=== PATIENT | female | born 1995 | race Caucasian/White ===

== ENCOUNTER 2017-09-23 17:28 | Emergency (ER) | payer MEDICAID, OTHER ==
[~2017-09-23 17:28] MED LIST: IBUP800 PO; NEXP68IM; ULTR50TA PO
--- NOTE | 2017-09-23 18:17 | PD ---
HPI Chief Complaint Pelvic pressure Date Seen: Sep 23, 2017 Time Seen: 18:13 Travel History International Travel<30 Days: No Contact w/Intl Traveler<30Days: No Known Affected Area: No History of Present Illness HPI 22-year-old who is at 18 weeks and 6 days comes in complaining of pelvic pressure since 3 PM today. Patient also has a little bit of cramping but denies vaginal bleeding and thinks she started to feel some movement. She has initiated care with [facility] and they have discussed starting her on Erica due to her history of . Denies dysuria frequency or urgency. Weeks Gestation: 18 Para: 1 : 2 History Past Medical History Medical History: Denies Significant Hx Obstetric History Obstetric History Spontaneous vaginal delivery-3 months early Family History Family History: Negative Social History Alcohol Use: No Tobacco Use: No Substance Abuse: No Allergies-Medications (Allergen,Severity, Reaction): Coded Allergies: codeine (Verified Allergy, Unknown, 06/28/17) Home Meds No Active Prescriptions or Reported Meds Review of Systems Except as stated in HPI: all other systems reviewed are Neg Physical Exam Narrative GENERAL: Well-nourished, well-developed patient. SKIN: Warm and dry. HEAD: Normocephalic and atraumatic. EYES: No scleral icterus. No injection or drainage. ENT: No nasal drainage noted. Mucous membranes pink. Airway patent. NECK: Supple, trachea midline. No JVD. CARDIOVASCULAR: Regular rate and rhythm without murmurs, gallops, or rubs. RESPIRATORY: Breath sounds equal bilaterally. No accessory muscle use. BREASTS: Bilateral exam showed no masses , no retractions, no nipple discharge. ABDOMEN/GI: Abdomen soft, non-tender, bowel sounds present, no rebound, no guarding Gravid to [-] weeks size 18 weeks size Fundal Height: [-] GENITOURINARY: External Genitalia: intact and normal in appearance BUS glands: [-] Normal Cervix: [-] Some benign discharge is noted intravaginally the cervix is closed both visually and on examination Dilatation: [-] Effacement: [-] Station: [-] Presentation: [-] Membranes: [intact or ruptured] Uterine Contractions: [-] FHT's: Doppler 142 Category: [-] Baseline: [-] Reactive: [-] Variability: [-] Decels: [-] EXTREMITIES: No cyanosis or edema. BACK: Nontender without obvious deformity. No CVA tenderness. NEUROLOGICAL: Awake and alert. Motor and sensory grossly within normal limits. Five out of 5 muscle strength in all muscle groups. Normal speech. Data Data Vital Signs Reviewed: Yes MDM Medical Record Reviewed: Yes Plan 22-year-old who is at 18 weeks 6 days with pelvic pressure no signs of this point of cervical insufficiency Patient is awaiting insurance approval to initiate Erica Follow-up with OB provider as scheduled Diagnosis Diagnosis: Primary Impression: 18 weeks gestation of Additional Impressions: History of delivery, currently in second trimester Feeling pelvic pressure during in second trimester, antepartum Disposition: DISCHARGE HOME Scripts No Active Prescriptions or Reported Meds Eva Apple MD Sep 23, 2017 18:17
== END 2017-09-23 18:25 | disposition home or self-care (01) ==
LOC: HOBED 17:28 → MERGE 17:28 → HOBED 18:25
DX: O26.892 Other specified pregnancy related conditions, second trimester (principal); R10.2 Pelvic and perineal pain; Z3A.18 18 weeks gestation of pregnancy; Z88.5 Allergy status to narcotic agent
CPT/HCPCS: 99283

== ENCOUNTER 2017-11-16 21:37 | Emergency (ER) | payer MEDICAID ==
[2017-11-16 23:02] LABS: AMORPHOUS SEDIMENT, URINE RARE; BACTERIA, URINE MANY /hpf; BILIRUBIN, URINE NEG (NEG); BLOOD, URINE NEG (NEG); GLUCOSE,URINE NEG (NEG); KETONE, URINE NEG (NEG); MUCUS URINE FEW /lpf (OCC); NITRITE,URINE NEG (NEG); PH, URINE 6.5 (5.0-8.5); SQUAMOUS EPITHELIAL CELL URINE 9 /hpf (0-5); URINE COLOR YELLOW (YELLW/STRAW); URINE LEUKOCYTE ESTERASE LARGE (NEG)
--- NOTE | 2017-11-16 23:22 | PD ---
HPI Chief Complaint abdominal pain Date Seen: Nov 16, 2017 Time Seen: 23:15 Travel History International Travel<30 Days: No Contact w/Intl Traveler<30Days: No Known Affected Area: No History of Present Illness HPI pt. is a 22 y/o @ 26 3/7 weeks w/ c/o abdominal pain. pt. hanna pain began earlier in day, states consistent w/ ctxs. states were ~ 8mins apart, but stopped and have been on and off since. +FM, no lof/vb. has h/o delivery at 25 weeks. Weeks Gestation: 26 Para: 0 : 2 History Past Medical History Medical History: Denies Significant Hx Obstetric History Obstetric History , h/o ptl&d at 25 weeks. Past Surgical History Surgical History: No Previous Surgery Family History Family History: Negative Social History Alcohol Use: No Tobacco Use: No Substance Abuse: No Allergies-Medications (Allergen,Severity, Reaction): Coded Allergies: codeine (Unverified Allergy, Intermediate, Rash, 04/07/17) Home Meds Active Scripts Ibuprofen (Motrin 800 Mg Tab) 800 Mg Tab, 800 MG PO Q8H Y for PAIN, #20 TAB Prov:Layla Elkins MD 07/13/14 Reported Medications Etonogestrel (Nexplanon) 68 Mg Imp 07/13/14 Tramadol HCl (Ultram) 50 Mg Tab, 50 MG PO Q4H Y for PAIN, TAB 07/13/14 Review of Systems Except as stated in HPI: all other systems reviewed are Neg Physical Exam Narrative GENERAL: Well-nourished, well-developed patient. SKIN: Warm and dry. HEAD: Normocephalic and atraumatic. EYES: No scleral icterus. No injection or drainage. ENT: No nasal drainage noted. Mucous membranes pink. Airway patent. NECK: Supple, trachea midline. No JVD. CARDIOVASCULAR: Regular rate and rhythm without murmurs, gallops, or rubs. RESPIRATORY: Breath sounds equal bilaterally. No accessory muscle use. BREASTS: Bilateral exam showed no masses , no retractions, no nipple discharge. ABDOMEN/GI: Abdomen soft, non-tender, bowel sounds present, no rebound, no guarding Gravid GENITOURINARY: External Genitalia: intact and normal in appearance Dilatation:1 Effacement: long Station: high Presentation:cephalic Uterine Contractions: none FHT's: Category: 1 Reactive: + Variability: mod EXTREMITIES: No cyanosis or edema. BACK: Nontender without obvious deformity. No CVA tenderness. NEUROLOGICAL: Awake and alert. Motor and sensory grossly within normal limits. Five out of 5 muscle strength in all muscle groups. Normal speech. 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[employer] Producer Clear For Discharge (11/16/17 ) Labs Laboratory Tests Test 11/16/17 22:05 Urine Color YELLOW Urine Turbidity HAZY Urine pH 6.5 Urine Specific Carr 1.025 Urine Protein TRACE Urine Glucose (UA) NEG Urine Ketones NEG Urine Occult Blood NEG Urine Nitrite NEG Urine Bilirubin NEG Urine Urobilinogen LESS THAN 2.0 Urine Leukocyte Esterase LARGE Urine RBC 5 Urine WBC 8 Urine Squamous Epithelial Cells 9 Urine Amorphous Sediment RARE Urine Bacteria MANY Urine Mucus FEW Microscopic Urinalysis Comment CULTURE INDICATED Date/Time Source Procedure Growth Status 11/16/17 22:05 Urine Clean Catch Urine Culture Pending Received MDM Medical Record Reviewed: Yes Plan pt. to be d/c to home. pt. w/ uti on ua. condtion d/w pt. pt. to have macrobid 100mg bid. pt. given precautions for return. all ? answered. f/u as sched. Diagnosis Diagnosis: Primary Impression: 26 weeks gestation of Additional Impressions: contractions Urinary tract infection affecting care of mother in second trimester, antepartum Disposition: 01 DISCHARGE HOME Adrian Borjas Jr., MD Nov 16, 2017 23:22
== END 2017-11-16 23:31 | disposition home or self-care (01) ==
LOC: HOBED 21:37
DX: O47.9 False labor, unspecified (principal); O23.42 Unspecified infection of urinary tract in pregnancy, second trimester; B95.61 Methicillin susceptible Staphylococcus aureus infection as the cause of diseases classified elsewhere; Z88.5 Allergy status to narcotic agent; Z79.899 Other long term (current) drug therapy; Z3A.26 26 weeks gestation of pregnancy
CPT/HCPCS: 81001; 86403; 87086; 87186; 99284

== ENCOUNTER 2017-12-09 15:36 | Emergency (ER) | payer MEDICAID ==
[~2017-12-09] VITALS: Ht 175.3 cm; Wt 86.6 kg
[2017-12-09] MEDS ORDERED: ACETAMINOPHEN 500 MG CPLT PO ONE (18:00)
--- NOTE | 2017-12-09 18:58 | PD ---
HPI Chief Complaint back apin Date Seen: Dec 09, 2017 Time Seen: 18:54 Travel History International Travel<30 Days: No Contact w/Intl Traveler<30Days: No Known Affected Area: No History of Present Illness HPI pt. is a 22 y/o @ 263/7 weeks present w/ c/o back pain. pt. states over the day has been having lower back pain. states worse w/ movement. no ctxs. pt. states has not hydrated today. pt. monitored w/ some irritable. pt. given 1 gm tylenol w/ some improvement. pt. cervix checked 1/long/high/pst. Weeks Gestation: 26 Para: 1 : 2 History Past Medical History Medical History: Denies Significant Hx Obstetric History Obstetric History , s/p Past Surgical History Surgical History: No Previous Surgery Family History Family History: Negative Social History Alcohol Use: No Tobacco Use: No Substance Abuse: No Allergies-Medications (Allergen,Severity, Reaction): Coded Allergies: codeine (Unverified Allergy, Intermediate, Rash, 04/07/17) Home Meds Discontinued Reported Medications Etonogestrel (Nexplanon) 68 Mg Imp 07/13/14 Tramadol HCl (Ultram) 50 Mg Tab, 50 MG PO Q4H Y for PAIN, TAB 07/13/14 Discontinued Scripts Ibuprofen (Motrin 800 Mg Tab) 800 Mg Tab, 800 MG PO Q8H Y for PAIN, #20 TAB Prov:Layla Elkins MD 07/13/14 Review of Systems Except as stated in HPI: all other systems reviewed are Neg Physical Exam Narrative GENERAL: Well-nourished, well-developed patient. SKIN: Warm and dry. HEAD: Normocephalic and atraumatic. EYES: No scleral icterus. No injection or drainage. ENT: No nasal drainage noted. Mucous membranes pink. Airway patent. NECK: Supple, trachea midline. No JVD. CARDIOVASCULAR: Regular rate and rhythm without murmurs, gallops, or rubs. RESPIRATORY: Breath sounds equal bilaterally. No accessory muscle use. ABDOMEN/GI: Abdomen soft, non-tender, bowel sounds present, no rebound, no guarding Gravid GENITOURINARY: External Genitalia: intact and normal in appearance Dilatation: closed Effacement:long Station: high Uterine Contractions: none FHT's: Category: 1 Reactive: + Variability:mod EXTREMITIES: No cyanosis or edema. BACK: Nontender without obvious deformity. No CVA tenderness. NEUROLOGICAL: Awake and alert. Motor and sensory grossly within normal limits. Five out of 5 muscle strength in all muscle groups. Normal speech. Data Data Vital Signs Reviewed: Yes Orders Orders Acetaminophen (Tylenol) (12/09/17 18:00) [employer] Record Clerk Clear For Discharge (12/09/17 ) MDM Medical Record Reviewed: Yes Plan pt. w/ paraspinal pain most prob 2/2 muscle strain. condition d/w pt. maternity gurdle d/w pt. all ? answered. given precautions for return. f/u as sched. Diagnosis Diagnosis: Primary Impression: 26 weeks gestation of Additional Impression: Back pain affecting in second trimester Disposition: 01 DISCHARGE HOME Patient Instructions: General Instructions Departure Forms: Tests/Procedures Adrian Borjas Jr., MD Dec 09, 2017 18:58
== END 2017-12-09 19:13 | disposition home or self-care (01) ==
LOC: HOBED 15:36
DX: O26.892 Other specified pregnancy related conditions, second trimester (principal); M54.5 Low back pain; Z3A.26 26 weeks gestation of pregnancy
CPT/HCPCS: 59025

== ENCOUNTER 2018-01-04 12:19 | Emergency (ER) | payer MEDICAID ==
--- NOTE | 2018-01-04 13:18 | PD ---
HPI Chief Complaint Vaginal bleeding, decreased movements Date Seen: January 04, 2018 Travel History International Travel<30 Days: No Contact w/Intl Traveler<30Days: No Known Affected Area: No History of Present Illness HPI The patient is a pleasant 22 year old at 33/3 weeks gestation who presents to OB triage due to vaginal bleeding since last night after sexual intercourse as well as reported decreased movements. She reports since last night the vaginal bleeding has decreased and now reports scant pink-white vaginal discharge. She denies any leakage or gush of fluid. Endorses irregular contractions possibly occurring about every 10-15 minutes. She denies fevers, dysuria, or other abnormal vaginal discharge. Para: 0101 : 2 History Past Medical History Medical History: Denies Significant Hx Obstetric History Obstetric History , h/o pre-term labor and delivery at 25 weeks. Past Surgical History Surgical History: No Previous Surgery Family History Family History: Negative Social History Alcohol Use: No Tobacco Use: No Substance Abuse: No Allergies-Medications (Allergen,Severity, Reaction): Coded Allergies: codeine (Unverified Allergy, Intermediate, Rash, 04/07/17) Review of Systems Except as stated in HPI: all other systems reviewed are Neg Physical Exam Narrative GENERAL: Well-nourished, well-developed patient. SKIN: Warm and dry. HEAD: Normocephalic and atraumatic. EYES: No scleral icterus. No injection or drainage. ENT: No nasal drainage noted. Mucous membranes pink. Airway patent. NECK: Supple, trachea midline. No JVD. CARDIOVASCULAR: Regular rate and rhythm without murmurs, gallops, or rubs. RESPIRATORY: Breath sounds equal bilaterally. No accessory muscle use. ABDOMEN/GI: Abdomen soft, non-tender, bowel sounds present, no rebound, no guarding Gravid to 33 weeks size GENITOURINARY (speculum and cervical exam performed with female wire tester present in room): External Genitalia: intact and normal in appearance Speculum exam: scant thin white discharge noted in the vaginal vault, no evidence of bleeding, no active bleeding. No brown or dark discharge suspicious of blood. External os of cervix visualized as closed. No cervical motion tenderness. Cervix: posterior Dilatation: fingertip Effacement: thick Station: high Presentation: [-] Membranes: [-] Uterine Contractions: Irregular FHT's: Category: I Baseline: 130s Reactive: +accels Variability: moderate Decels: none noted EXTREMITIES: No cyanosis or edema. BACK: Nontender without obvious deformity. No CVA tenderness. NEUROLOGICAL: Awake and alert. Motor and sensory grossly within normal limits. Normal speech. Data Data Vital Signs Reviewed: Yes MDM Medical Record Reviewed: Yes Plan 22 year old at 33/3 weeks gestation with history of pre-term labor and delivery at 25 weeks gestation in her first , patient being evaluated due to vaginal bleeding, irregular contractions, and reports of decreased movements. Speculum exam demonstrated no evidence of active or recent bleeding, cervix visualized without lesion or source of bleeding; no cervical motion tenderness. Cervix fingertip, thick. Patient with irregular contractions on tocometer. Category I tracing. Discussed with patient si/sxs that would warrant a return visit for reevaluation. Labor precautions reviewed. Patient instructed to follow up for next routine OB visit. Diagnosis Diagnosis: Primary Impression: 33 weeks gestation of Disposition: 01 DISCHARGE HOME Condition: Stable Patient Instructions: Labor (ED), Early Labor Signs (ED), General Instructions, Movement (ED) Eugene Apple MD R2 January 04, 2018 13:18
== END 2018-01-04 13:40 | disposition home or self-care (01) ==
LOC: HOBED 12:19
DX: O46.93 Antepartum hemorrhage, unspecified, third trimester (principal); Z3A.33 33 weeks gestation of pregnancy
CPT/HCPCS: 59025